=== PATIENT | male | born 1955 | race African-American/Black ===

== ENCOUNTER 2020-06-17 12:34 | Emergency (ER) | payer OTHER ==
[~2020-06-17] VITALS: Ht 177.8 cm; Wt 72.6 kg
[~2020-06-17 12:34] MED LIST: ARTISOL13 EACHEYE; ASCO500T11 PO; BACL-63 PO; CHOL1CAP15 PO; CLONPOW23 XX; CYAN100023 PO; DOXA1TAB50 PO; DOXAZOSIN PO; FLUO60TA PO; GLAT20KI SC; HYDR25TA4 PO; NITR-52 PO; OXYB10TA14 PO; POT20T PO; SIMVPOW2 PO
[2020-06-17] MEDS ORDERED: IBUPROFEN 600 MG TAB PO ONE (13:45)
[2020-06-17 14:20] VITALS: BP 105/69
== END 2020-06-17 14:23 | disposition home or self-care (01) ==
LOC: ER 12:34
DX: S93.401A Sprain of unspecified ligament of right ankle, initial encounter (principal); E11.9 Type 2 diabetes mellitus without complications; I10 Essential (primary) hypertension; E78.5 Hyperlipidemia, unspecified; Z79.899 Other long term (current) drug therapy; X58.XXXA Exposure to other specified factors, initial encounter; Y93.89 Activity, other specified; Y92.89 Other specified places as the place of occurrence of the external cause; Y99.8 Other external cause status
CPT/HCPCS: 73610